=== PATIENT | female | born 1995 | race Caucasian/White ===

== ENCOUNTER 2019-10-07 19:25 | Emergency (ER) | payer OTHER ==
--- OUTSIDE RECORDS SUMMARY | 2019-10-07 19:27 | XMS REPORT | Summary of Care ---
:1995 Author Organization [facility] - [facility] Address [address] [place] [address] Care Team Providers Name Role Phone Pcp, Patient Does Not Have A Primary Care Provider Reason for Visit Reason Comments Rx Concern/Question Encounter Details Date Type Department Care Team Description 06/21/2019 [facility] and Valeriano Echavarria, Non-Scheduled Counseling [address] [address] [place] [address] Allergies Active Allergy Reactions Severity Noted Date Comments Shellfish Derived Hives Medium 10/25/2018 documented as of this encounter (statuses as of 06/21/2019) Medications Medication Sig Dispensed Refills Start Date End Date Status ibuprofen 200 mg Take 2 tablets by 0 10/25/2018 Active tabletIndications: Pain mouth every 6 of right calf (six) hours as needed for Pain (scale 4-6). fluticasone propionate Use 2 Sprays in 16 g 0 05/03/2019 Active 50 mcg/actuation nasal each nostril sprayIndications: Nasal daily. congestion escitalopram oxalate Take 1 tablet by 30 tablet 2 05/03/2019 Active (LEXAPRO) 10 mg mouth daily. tabletIndications: Panic disorder, Generalized anxiety disorder, Depressive disorder documented as of this encounter (statuses as of 06/21/2019) Active Problems Not on filedocumented as of this encounter (statuses as of 06/21/2019) Immunizations Name Administration Dates Next Due HEP B, Adult Dosage 12/26/2018, 10/21/2018 documented as of this encounter Social History Tobacco Use Types Packs/Day Years Used Date Never Smoker Smokeless Tobacco: Never Used Alcohol Use Drinks/Week oz/Week Comments Yes Alcohol Habits Answer Date Recorded How often do you have a drink containing alcohol? 2-4 times a month 2018 How many drinks containing alcohol do you have on a Not asked typical day when you are drinking? How often do you have six or more drinks on one Not asked occasion? Stress Answer Date Recorded Do you feel stress - tense, restless, nervous, or To some extent 05/03/2019 anxious, or unable to sleep at night because your mind is troubled all the time - these days? Intimate Partner Violence Answer Date Recorded Within the last year, have you been afraid of your partner or No 05/03/2019 ex-partner? Within the last year, have you been humiliated or emotionally No 05/03/2019 abused in other ways by your partner or ex-partner? Within the last year, have you been kicked, hit, slapped, or No 05/03/2019 otherwise physically hurt by your partner or ex-partner? Within the last year, have you been raped or forced to have any No 05/03/2019 kind of sexual activity by your partner or ex-partner? Sex Assigned at Date Recorded Not on file Job Start Date Occupation Industry Not on file Not on file Not on file Travel History Travel Start Travel End No recent travel history available. documented as of this encounter Last Filed Vital Signs Not on filedocumented in this encounter Plan of Treatment Health Maintenance Due Date Last Done Comments VARICELLA VACCINES (1 of 2 - 13+ 01/06/2008 2-dose series) HPV VACCINES (1 - Female 3-dose 2010 series) CHLAMYDIA SCREENING 2011 DTaP,Tdap,and Td Vaccines (1 - 2014 Tdap) PAP SMEAR 01/06/2016 INFLUENZA VACCINE (#1) 2019 PNEUMOCOCCAL 0-64 YEARS COMBINED Aged Out No longer eligible based on SERIES patient's age to complete this topic documented as of this encounter Results Not on filedocumented in this encounter Insurance Payer Benefit Plan / Group Subscriber ID Effective Dates Phone Address Type AETNA AETNA [facility] [id number] 2014-Present PPO documented as of this encounter
--- OUTSIDE RECORDS SUMMARY | 2019-10-07 19:27 | XMS REPORT ---
:1995 [facility] Address [address] [place] [address] Dr. Suero [address] [place] [address] Care Team Providers Name Role Phone Unavailable Unavailable Unavailable Problems This patient has no known problems. Allergies, Adverse Reactions, Alerts This patient has no known allergies or adverse reactions. Medications This patient has no known medications.
--- OUTSIDE RECORDS SUMMARY | 2019-10-07 19:27 | XMS REPORT | Summary of Care ---
:1995 Author Organization [facility] - [facility] Address [address] [place] [address] Care Team Providers Name Role Phone Pcp, Patient Does Not Have A Primary Care Provider Reason for Visit Reason Comments Anxiety Encounter Details Date Type Department Care Team Description 06/06/2019 Pending sale to [facility] Danielle Bright, Panic disorder (Primary Dx); Scheduled Visit and Counseling PHD Generalized anxiety disorder [address] [place], [place] [address] [address] [place], [place] [phone] Allergies Active Allergy Reactions Severity Noted Date Comments Shellfish Derived Hives Medium 10/25/2018 documented as of this encounter (statuses as of 06/06/2019) Medications Medication Sig Dispensed Refills Start Date [...] as of this encounter (statuses as of 06/06/2019) Active Problems Not on filedocumented as of this encounter (statuses as of 06/06/2019) Immunizations Name Administration Dates Next Due HEP [...] Signs Not on filedocumented in this encounter Progress Notes Danielle Bright, PHD - 06/06/2019 1:00 PM [facility] Outpatient Follow-Up [id number] Lindsey Jerome [address] [place] [address] 06/06/2019 HISTORY OF PRESENT ILLNESS: (severity, timing, modifying factors, quality, duration/clinical course,context, associated signs and symptoms) Lindsey reports that she has been doing "so-so." She reports that her baseline of anxiety has been approximately a 4. She reports there are also several times throughout the week that she did feel some chest tightness. She reports that her anxiety did not reach a level of a panic attack. She reports that she is enjoying her break as slightly anxious about going back to school next week. She reports some continued passive suicidal ideation such as it would be easier if she were not here. She reports no plan or intent and there was no evidence of any plan or intent. She reports that her main complaint is his been very tired despite getting her proper amount of sleep. She did describe poor sleep quality and states that she frequently remembers her dreams. She also reports that she has greatdifficulty paying attention and over the past 2 weeks she is only been able to pay attention for about 15 minutes at a time. MENTAL STATUS EXAM: COMMENTS: On time and engaged GAIT AND STATION: Normal APPEARANCE: Well Groomed ATTITUDE: Cooperative PSYCHOMOTOR: Psychomotor Normal MOOD: Anxious AFFECT: Flat SPEECH: Regular rate and volume LANGUAGE: Normal THOUGHT PROCESS: Logical Directed ASSOCIATIONS: Normal ABNORMAL/PSYCHOTIC THOUGHTS THOUGHT CONTENT: Without Delusions PERCEPTUAL: Without Hallucinations SUICIDAL: Not present VIOLENT/HOMICIDAL: Not Present COGNITION: Normal Cognition LEVEL OF CONSCIOUSNESS: Full ORIENTATION: Oriented x 4 RECENT AND REMOTE MEMORY: Intact INTELLIGENCE: Average FUND OF KNOWLEDGE: Average ATTENTION AND CONCENTRATION: Good JUDGEMENT: Intact INSIGHT: Intact ASSESSMENT/FORMULATION: She reports that she's been doing fairly well with her self-care and behavioral activation but does want to continue to make some improvements. We discussed without the clinic going forward. She reports that she wants to increase her physical activity. We discussed with this up realistically look like in her expectations. We also discussed various cognitive techniques. She thought that completing the simple thought record to start identifying the thoughts leading to her emotions would be helpful. We also discussed proper sleep hygiene and sleep restriction. She also plans to the psychiatristto see the medication could be impacting her sleep or if the sleep study should be conducted. We agreed to meet my next available session. We discussed her possibly completing the attention and concentration screening next session. She was able to inform me of the emergency resources available to her. DIAGNOSES/PLAN: Panic disorder (primary encounter diagnosis) Comment: Improved Plan: CBT Generalized anxiety disorder Comment: Stable Plan: CBT documented in this encounter Plan of Treatment Health [...] Results Not on filedocumented in this encounter Visit Diagnoses Diagnosis Panic disorder - Primary Panic disorder without agoraphobia Generalized anxiety disorder documented in this encounter ([place]) [place] [address] documented as of this encounter
--- OUTSIDE RECORDS SUMMARY | 2019-10-07 19:27 | XMS REPORT | Summary of Care ---
:1995 Author Organization [facility] - [facility] Address [address] [place] [address] Care Team Providers Name Role Phone Pcp, Patient Does Not Have A Primary Care Provider Reason for Visit Reason Comments Rx Concern/Question Encounter Details Date Type Department Care Team Description 06/20/2019 Telephone [facility] and Valeriano Echavarria MD Rx Concern/Question Counseling [address] [facility] [address] [place] [address] [place] [address] Allergies Active Allergy Reactions Severity Noted Date Comments Shellfish Derived Hives Medium 10/25/2018 documented as of this encounter (statuses as of 06/20/2019) Medications Medication Sig Dispensed Refills Start Date [...] as of this encounter (statuses as of 06/20/2019) Active Problems Not on filedocumented as of this encounter (statuses as of 06/20/2019) Immunizations Name Administration Dates Next Due HEP [...] Effective Dates Phone Address Type AETNA AETNA [facility] [id number] 2014-Present PPO documented as of this encounter
--- OUTSIDE RECORDS SUMMARY | 2019-10-07 19:27 | XMS REPORT | Summary of Care ---
:1995 Author Organization [facility] Address [address] [place] [address] Care Team Providers Name Role Phone Pcp, Patient Does Not Have A Primary Care Provider Reason for Visit Reason Comments Anxiety Encounter Details Date Type Department Care Team Description 05/19/2019 [facility] Danielle Bright, Panic disorder (Primary Dx); Scheduled Visit and Counseling PHD Generalized anxiety disorder [address] [place], [place] [address] [address] [place], [place] [phone] Allergies Active Allergy Reactions Severity Noted Date Comments Shellfish Derived Hives Medium 10/25/2018 documented as of this encounter (statuses as of 05/29/2019) Medications Medication Sig Dispensed Refills Start Date [...] as of this encounter (statuses as of 05/29/2019) Active Problems Not on filedocumented as of this encounter (statuses as of 05/29/2019) Immunizations Name Administration Dates Next Due HEP [...] encounter Progress Notes Danielle Bright, PHD - 05/19/2019 11:00 AM [facility] Outpatient Follow-Up [id number] Lindsey Jerome [address] [place] [address] 05/29/2019 INFORMED CONSENT: Informed consent was reviewed with the client. She was informed of confidentiality and the limits ofconfidentiality. She was informed that [facility] now documents in [facility]. She was informed of the safeguards in place for her record. She was informed that she can contact the office of institutional compliance if she believes her record has been accessed inappropriately, and she wasgiven their contact information. HISTORY OF PRESENT ILLNESS: (severity, timing, modifying factors, quality, duration/clinical course,context, associated signs and symptoms) Lindsey reports that she has been doing well since we last met. She reports that the medication has been very helpful to her. She repots that her classes are going well. MENTAL STATUS EXAM: COMMENTS: on time and engaged GAIT AND STATION: Normal APPEARANCE: Well Groomed ATTITUDE: Cooperative PSYCHOMOTOR: Psychomotor Normal MOOD: Normal AFFECT: Appropriate SPEECH: Regular rate and volume LANGUAGE: Normal THOUGHT PROCESS: Logical Directed ASSOCIATIONS: Normal ABNORMAL/PSYCHOTIC THOUGHTS THOUGHT CONTENT: Without Delusions PERCEPTUAL: Without Hallucinations SUICIDAL: Not present VIOLENT/HOMICIDAL: Not Present COGNITION: Normal Cognition LEVEL OF CONSCIOUSNESS: Full ORIENTATION: Oriented x 4 RECENT AND REMOTE MEMORY: Intact INTELLIGENCE: Average FUND OF KNOWLEDGE: Average ATTENTION AND CONCENTRATION: Good JUDGEMENT: Intact INSIGHT: Intact ASSESSMENT/FORMULATION: Today she was instructed in various relaxation techniques to help decrease her anxiety and panic. She responded well to the interventions used. She thought that deep breathing would be very helpful forher. She was able to inform me of the emergency resources available to her. DIAGNOSES/PLAN: Panic disorder (primary encounter diagnosis) Comment: stable Plan: CBT Generalized anxiety disorder Comment: stable Plan: CBT documented in this encounter Plan of Treatment Date Type Specialty Care Team Description 06/06/2019 [facility] Danielle Bright, PHD Scheduled Visit [address] [place] [phone] Health Maintenance Due Date Last Done Comments [...] Generalized anxiety disorder documented in this encounter documented as of this encounter
[2019-10-07 20:54] LABS: Urine Blood NEGATIVE (NEG); Urine Glucose NEGATIVE (NEG); Urine Protein NEGATIVE (NEG); Urine pH 5.5 (5.0-7.0)
[2019-10-07 20:55] LABS: Absolute Lymphocytes (CBC) 2.5 K/uL (0.7-4.9); Hematocrit 43.2 % (36.0-45.0); Lymphocytes % 38.6 % (15.3-44.8); MPV 8.4 fL (7.6-11.3); RBC Red Blood Cell Count 4.91 M/uL (3.86-4.86)
[2019-10-07 21:09] LABS: Potassium 3.9 mmol/L (3.5-5.1)
[2019-10-07] MEDS ORDERED: CIPROFLOXACIN HCL 500 MG TAB ONE (23:02)
--- NOTE | 2019-10-08 00:33 | ER ---
Nurse's Notes [facility] Name: Lindsey Cano Age: 24 yrs Sex: Female : 1995 Arrival Date: 10/07/2019 Time: 19:31 Bed 25 Private MD: Diagnosis: Retention of urine Presentation: 10/07 19:47 Presenting complaint: Patient states: vaginal pain and "watery discharge" since 09/28 sr5 painful urination. Seen at [place] Wednesday, Urine neg, Upreg negative, reports tested for trich/gonorrhea haven't heard back about results yet. Sent home on Flagyl. Transition of care: patient was not received from another setting of care. Onset of symptoms was September 28, 2019. Risk Assessment: Do you want to hurt yourself or someone else? Patient reports no desire to harm self or others. Initial Sepsis Screen: Does the patient meet any 2 criteria? No. Patient's initial sepsis screen is negative. Care prior to arrival: None. 19:47 Method Of Arrival: Ambulatory sr5 19:47 Acuity: LENNY 3 sr5 21:44 Initial Sepsis Screen: Does the patient have a suspected source of infection? No. mg2 Patient's initial sepsis screen is negative. Triage Assessment: 19:51 General: Appears uncomfortable, Behavior is calm, cooperative. Pain: Complains of pain sr5 in groin. Neuro: No deficits noted. Cardiovascular: No deficits noted. Respiratory: No deficits noted. GI: No deficits noted. : Reports burning with urination, discharge, pain in suprapubic area. 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 - Social history:: Smoking status: Patient/guardian denies using tobacco, never smoked. - Ebola Screening: : Patient negative for fever greater than or equal to 101.5 degrees Fahrenheit, and additional compatible Ebola Virus Disease symptoms. Screenin:43 Abuse screen: Denies threats or abuse. Denies injuries from another. Nutritional mg2 screening: No deficits noted. Tuberculosis screening: No symptoms or risk factors identified. Fall Risk IV access (20 points). Assessment: 21:07 Reassessment: pt still was not able to pee, complains of pain, bladder is distended, as jv1 ordered by provider, performed straight catheterization, was able to drain 900ml of urine. pt voiced relief of pain. . 21:42 General: Appears in no apparent distress. comfortable, Behavior is calm, cooperative. mg2 Pain: Complains of pain in groin Pain does not radiate. Pain currently is 3 out of 10 on a pain scale. Quality of pain is described as aching. Neuro: Level of Consciousness is awake, alert, obeys commands, Oriented to person, place, time, situation. Cardiovascular: Capillary refill < 3 seconds Patient's skin is warm and dry. Respiratory: Airway is patent Respiratory effort is even, unlabored, Respiratory pattern is regular, symmetrical. GI: No signs and/or symptoms were reported involving the gastrointestinal system. : Reports pain with urination. EENT: No signs and/or symptoms were reported regarding the EENT system. Derm: Skin is intact, is healthy with good turgor, Skin is pink, warm \\T\\ dry. normal. Musculoskeletal: Circulation, motion, and sensation intact. Capillary refill < 3 seconds. 22:38 Reassessment: Patient and/or family updated on plan of care and expected duration. Pain jv1 level reassessed. Patient is alert, oriented x 3, equal unlabored respirations, skin warm/dry/pink. Patient is alert/active/playful, equal unlabored respirations, skin warm/dry/pink. received report from Lizzette Anthony RN. 22:40 Reassessment: Patient appears in no apparent distress at this time. Patient and/or jv1 family updated on plan of care and expected duration. Pain level reassessed. provider in the room with pt. provider said pt will try to urinate first before getting discharged. given pt 3 cups of water for her to drink.. 23:00 Reassessment: Patient appears in no apparent distress at this time. Patient and/or jv1 family updated on plan of care and expected duration. Pain level reassessed. Patient is alert, oriented x 3, equal unlabored respirations, skin warm/dry/pink. General:. General: asked pt to urinate, pt tried but still she said she was unable to void. . Pain: Denies pain. Neuro: Level of Consciousness is obeys commands, Oriented to person, place, time, situation. 23:47 Reassessment: provider visited and asked pt to urinate and if still unable to do jv1 bladder scan. 23:50 Reassessment: instructed pt to try to urinate. pt said she will in a little bit. . jv1 10/08 00:20 Reassessment: pt tried to urinate 2x but was unable to. bladder scan ws done and noted jv1 341ml or urine in the bladder. provider updated, she ordered to put a causey catheter for the pt to take home. . 00:40 Reassessment: causey catherter inserted, drained 400ml of urine. jv1 01:30 Reassessment: Patient and/or family updated on plan of care and expected duration. Pain jv1 level reassessed. Patient is alert, oriented x 3, equal unlabored respirations, skin warm/dry/pink. Patient denies pain at this time. Patient states feeling better. Patient states symptoms have improved. causey catheter intact and draining well. well anchored to the pt's right thigh. . 01:50 Reassessment:. jv1 Vital Signs: 10/07 19:51 BP 104 / 69; Pulse 81; Resp 16; Temp 98.1; Pulse Ox 97% on R/A; Weight 67.59 kg (R); sr5 Height 5 ft. 9 in. (175.26 cm); Pain 6/10; 21:45 BP 131 / 76; Pulse 80; Resp 18; Temp 98; Pulse Ox 100% on R/A; mg2 22:45 BP 125 / 70; Pulse 88; Resp 18; Temp 98; Pulse Ox 100% on R/A; Pain 0/10; jv1 23:45 BP 128 / 75; Pulse 79; Resp 18; Temp 98.5; Pulse Ox 100% on R/A; Pain 0/10; jv1 10/08 00:45 BP 120 / 80; Pulse 78; Resp 18; Temp 98.5; Pulse Ox 98% ; Pain 2/10; jv1 01:30 BP 115 / 70; Pulse 78; Resp 18; Temp 98.9; Pulse Ox 98% ; Pain 0/10; jv1 10/07 19:51 Body Mass Index 22.00 (67.59 kg, 175.26 cm) sr5 ED Course: 10/07 19:31 Patient arrived in ED. cf2 19:50 Triage completed. sr5 19:51 Arm band placed on. sr5 19:57 Farheen Upton FNP-C is [facility]. kb 19:57 Feliz Becerra MD is Attending Physician. kb 20:04 Justo Anthony, RN is Primary Nurse. mg2 21:40 Straight cath inserted, using sterile technique, 16 Fr. Specimen obtained. 900 ml mg2 Returned clear yellow urine. Patient tolerated well. 21:43 Patient has correct armband on for positive identification. Placed in gown. Door mg2 closed. Warm blanket given. 21:44 No provider procedures requiring assistance completed. Inserted saline lock: 20 gauge mg2 in left antecubital area, using aseptic technique. Blood collected. by INDER Be. 22:01 Abdomen In Process Unspecified. EDMS 10/08 00:27 Brie Andino MD is Referral Physician. kb 01:30 IV discontinued, intact, bleeding controlled, No redness/swelling at site. Pressure jv1 dressing applied. Administered Medications: 10/07 23:05 Drug: Cipro 500 mg Route: PO; jv1 23:59 Follow up: Response: No adverse reaction jv1 Intake: 21:30 PO: 100ml; IV: 20ml; Total: 120ml. jv1 10/08 01:30 PO: 800ml; Total: 920ml. jv1 Output: 10/07 21:30 Urine: 900ml (Straight Cath); Total: 900ml. jv1 10/08 01:30 Urine: 400ml (Causey); Total: 1300ml. jv1 Outcome: 00:27 Discharge ordered by . kb 01:30 Discharged to home ambulatory, with family, with friend. jv1 01:30 Condition: improved 01:30 Discharge instructions given to patient, family, Instructed on discharge instructions, follow up and referral plans. instructed on causey catheter care. Demonstrated understanding of instructions, follow-up care, medications, causey catheter care Prescriptions given X 1. 01:53 Patient left the ED. jv1 Signatures: Dispatcher [employer] EDMT Farheen Upton FNP-C FNP-Rich Rodriguez RN RN sr5 Justo Anthony RN RN mg2 Indiana Nguyen RN RN jv1 Oscar Ramirez cf2
--- NOTE | 2019-10-08 00:34 | EDPHYS ---
Physician Documentation [facility] Name: Lindsey Cano Age: 24 yrs Sex: Female : 1995 Arrival Date: 10/07/2019 Time: 19:31 Bed 25 Private MD: ED Physician Feliz Becerra HPI: 10/07 20:31 This 24 yrs old Female presents to ER via Ambulatory with complaints of kb Urinary Problem, Leg Pain. 20:31 The patient presents with urinary symptoms, urinary retention. Onset: The kb symptoms/episode began/occurred this morning. Modifying factors: The symptoms are alleviated by nothing, the symptoms are aggravated by nothing. Associated signs and symptoms: Pertinent positives: unable to urinate. Severity of symptoms: At their worst the symptoms were moderate, in the emergency department the symptoms are unchanged. The patient has not experienced similar symptoms in the past. The patient has not recently seen a physician. Pt reports she was having difficulty urinating this morning and has been unable to urinate since this afternoon. Reports pain to suprapubic area. States "I feel like I have to pee so bad, but I just can't go.". 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 - Social history:: Smoking status: Patient/guardian denies using tobacco, never smoked. - Ebola Screening: : Patient negative for fever greater than or equal to 101.5 degrees Fahrenheit, and additional compatible Ebola Virus Disease symptoms. ROS: 20:30 Constitutional: Negative for fever, chills, and weight loss, Cardiovascular: Negative kb for chest pain, palpitations, and edema, Respiratory: Negative for shortness of breath, cough, wheezing, and pleuritic chest pain, Abdomen/GI: Negative for abdominal pain, nausea, vomiting, diarrhea, and constipation, Back: Negative for injury and pain, MS/Extremity: Negative for injury and deformity, Skin: Negative for injury, rash, and discoloration, Neuro: Negative for headache, weakness, numbness, tingling, and seizure. 20:30 : Positive for urinary symptoms, unable to urinate. Exam: 20:30 Constitutional: This is a well developed, well nourished patient who is awake, alert, kb and in no acute distress. Head/Face: Normocephalic, atraumatic. ENT: Nares patent. No nasal discharge, no septal abnormalities noted. Tympanic membranes are normal and external auditory canals are clear. Oropharynx with no redness, swelling, or masses, exudates, or evidence of obstruction, uvula midline. Mucous membranes moist. Neck: Trachea midline, no thyromegaly or masses palpated, and no cervical lymphadenopathy. Supple, full range of motion without nuchal rigidity, or vertebral point tenderness. No Meningismus. Chest/axilla: Normal chest wall appearance and motion. Nontender with no deformity. No lesions are appreciated. Cardiovascular: Regular rate and rhythm with a normal S1 and S2. No gallops, murmurs, or rubs. Normal PMI, no JVD. No pulse deficits. Respiratory: Lungs have equal breath sounds bilaterally, clear to auscultation and percussion. No rales, rhonchi or wheezes noted. No increased work of breathing, no retractions or nasal flaring. Back: No spinal tenderness. No costovertebral tenderness. Full range of motion. Skin: Warm, dry with normal turgor. Normal color with no rashes, no lesions, and no evidence of cellulitis. MS/ Extremity: Pulses equal, no cyanosis. Neurovascular intact. Full, normal range of motion. Neuro: Awake and alert, GCS 15, oriented to person, place, time, and situation. Cranial nerves II-XII grossly intact. Motor strength 5/5 in all extremities. Sensory grossly intact. Cerebellar exam normal. Normal gait. 20:30 Abdomen/GI: Inspection: distension, that is moderate, in the suprapubic area, Bowel sounds: normal, in all quadrants, Palpation: soft, in all quadrants, moderate abdominal tenderness, in the suprapubic area. Vital Signs: 19:51 BP 104 / 69; Pulse 81; Resp 16; Temp 98.1; Pulse Ox 97% on R/A; Weight 67.59 kg (R); sr5 Height 5 ft. 9 in. (175.26 cm); Pain 6/10; 21:45 BP 131 / 76; Pulse 80; Resp 18; Temp 98; Pulse Ox 100% on R/A; mg2 22:45 BP 125 / 70; Pulse 88; Resp 18; Temp 98; Pulse Ox 100% on R/A; Pain 0/10; jv1 23:45 BP 128 / 75; Pulse 79; Resp 18; Temp 98.5; Pulse Ox 100% on R/A; Pain 0/10; jv1 10/08 00:45 BP 120 / 80; Pulse 78; Resp 18; Temp 98.5; Pulse Ox 98% ; Pain 2/10; jv1 01:30 BP 115 / 70; Pulse 78; Resp 18; Temp 98.9; Pulse Ox 98% ; Pain 0/10; jv1 10/07 19:51 Body Mass Index 22.00 (67.59 kg, 175.26 cm) sr5 MDM: 10/07 19:57 Patient medically screened. kb 20:30 Data reviewed: vital signs, nurses notes. Data interpreted: Pulse oximetry: on room air kb is 97 %. Interpretation: normal. 23:02 Counseling: I had a detailed discussion with the patient and/or guardian regarding: the kb historical points, exam findings, and any diagnostic results supporting the discharge/admit diagnosis, lab results, radiology results, the need for outpatient follow up, a family practitioner, a urologist, to return to the emergency department if symptoms worsen or persist or if there are any questions or concerns that arise at home. 10/08 00:26 ED course: Pt still unable to urinate. Will place causey to go home with and pt will kb call Dr Andino on Wednesday for follow up. . 10/07 20:18 Order name: CBC with Diff; Complete Time: 20:59 kb 10/07 20:18 Order name: Basic Metabolic Panel; Complete Time: 21:10 kb 10/07 20:52 Order name: Urine Dipstick--Ancillary (enter results); Complete Time: 20:55 cm6 10/07 20:52 Order name: Urine --Ancillary (enter results); Complete Time: 20:55 cm6 10/07 21:49 Order name: Abdomen EDMS 10/07 20:00 Order name: Urine Dipstick-Ancillary (obtain specimen); Complete Time: 20:24 kb 10/07 20:18 Order name: IV Saline Lock; Complete Time: 21:07 kb 10/07 20:18 Order name: Labs collected and sent; Complete Time: 21:07 kb 10/07 20:19 Order name: Straight Cath - Urine; Complete Time: 21:07 kb 10/08 00:27 Order name: Causey Leg Bag; Complete Time: 01:05 kb Administered Medications: 10/07 23:05 Drug: Cipro 500 mg Route: PO; jv1 23:59 Follow up: Response: No adverse reaction jv1 Disposition: 10/08 07:00 Co-signature as Attending Physician, Feliz Becerra MD. rn Disposition: 10/08/19 00:27 Discharged to Home. Impression: Retention of urine. - Condition is Stable. - Prescriptions for Cipro 500 mg Oral Tablet - take 1 tablet by ORAL route every 12 hours for 7 days; 14 tablet. - Medication Reconciliation Form, Thank You Letter, Antibiotic Education, Prescription Opioid Use form. - Follow up: Emergency Department; When: As needed; Reason: Worsening of condition. Follow up: Private Physician; When: 2 - 3 days; Reason: Recheck today's complaints, Continuance of care, Re-evaluation by your physician. Follow up: Brie Andino MD; When: 1 - 2 days; Reason: Recheck today's complaints. Signatures: Dispatcher [employer] EDMA Farheen Upton, SHOPPER-C SHOPPER-Ckb Feliz Becerra MD MD rn Resecker, Rich RN RN sr5 Indiana Nguyen RN RN jv1 Corrections: (The following items were deleted from the chart) 10/07 20:19 20:18 Causey ordered. kb kb 21:49 21:00 Abdomen Pelvis W Con+CT.RAD.BRZ ordered. EDMA EDMA 10/08 00:27 00:27 10/08/2019 00:27 Discharged to Home. Impression: Retention of urine. Condition is kb Stable. Forms are Medication Reconciliation Form, Thank You Letter, Antibiotic Education, Prescription Opioid Use. Follow up: Emergency Department; When: As needed; Reason: Worsening of condition. Follow up: Private Physician; When: 2 - 3 days; Reason: Recheck today's complaints, Continuance of care, Re-evaluation by your physician. kb 01:53 00:27 10/08/2019 00:27 Discharged to Home. Impression: Retention of urine. Condition is jv1 Stable. Prescriptions for Cipro 500 mg Oral Tablet - take 1 tablet by ORAL route every 12 hours for 7 days; 14 tablet. and Forms are Medication Reconciliation Form, Thank You Letter, Antibiotic Education, Prescription Opioid Use. Follow up: Emergency Department; When: As needed; Reason: Worsening of condition. Follow up: Private Physician; When: 2 - 3 days; Reason: Recheck today's complaints, Continuance of care, Re-evaluation by your physician. Follow up: Brie Andino; When: 1 - 2 days; Reason: Recheck today's complaints. kb
[2019-10-08 02:08] VITALS: O2SAT 98
[2019-10-08 02:10] VITALS: BP 115/70; TEMP 98.9
--- NOTE | 2019-10-09 09:22 | RAD REPORT ---
EXAM DESCRIPTION: CT - Abdomen Pelvis Wo Contrast - 10/07/2019 10:49 pm CLINICAL HISTORY: The patient is 24 years old and is Female; urinary retention TECHNIQUE: Axial computed tomography images of the abdomen and pelvis without intravenous contrast. Sagittal and coronal reformatted images were created and reviewed. This CT exam was performed usi ng one or more of the following dose reduction techniques: automated exposure control, adjustment o f the mA and/or kV according to patient size, and/or use of iterative reconstruction technique. DLP: 546 mGy*cm COMPARISON: None. FINDINGS: LUNG BASES: Lung bases are clear. HEART: Visualized heart is normal. ABDOMEN: LIVER: Unremarkable. GALLBLADDER AND BILE DUCTS: Unremarkable. No calcified stones. No ductal dilation. PANCREAS: Unremarkable. No ductal dilation. SPLEEN: Unremarkable. No splenomegaly. ADRENALS: Unremarkable. No mass. KIDNEYS AND URETERS: No radiopaque stone, hydronephrosis or hydroureter. STOMACH AND BOWEL: Unremarkable. No obstruction. No mucosal thickening. PELVIS: APPENDIX: The appendix is seen and is within normal limits. BLADDER: Bladder is decompressed. No stones. REPRODUCTIVE: Unremarkable as visualized. ABDOMEN and PELVIS: INTRAPERITONEAL SPACE: Small amount of free pelvic fluid. No free air. BONES/JOINTS: No acute fracture. No dislocation. SOFT TISSUES: Tiny fat-containing umbilical hernia. VASCULATURE: Unremarkable. No abdominal aortic aneurysm. LYMPH NODES: Unremarkable. No enlarged lymph nodes. OTHER FINDINGS: Physiologic pelvic changes. IMPRESSION: 1. No acute abdominal or pelvic abnormality. Decompressed bladder. 2. Physiologic pelvic changes. 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 The interpreting radiologist is f ully responsible for the content of the report.
== END 2019-10-08 01:53 | disposition home or self-care (01) ==
LOC: ER 19:25
DX: R33.9 Retention of urine, unspecified (principal); Z91.013 Allergy to seafood
CPT/HCPCS: 36415; 51702; 74176; 80048; 81003; 81025; 85025; 99284

== ENCOUNTER 2021-02-19 23:19 | Emergency (ER) | payer OTHER ==
--- OUTSIDE RECORDS SUMMARY | 2021-02-19 23:22 | XMS REPORT | Continuity of Care Document ---
:1995 Author Organization [facility] t Address [address] [place] [address] Care Team Providers Name Role Phone Doctor Unassigned, Mcgrew Attending Clinician Unavailable Jericho MACK P Attending Clinician Kaila GIBSON Attending Clinician Problems This patient has no known problems. Allergies, Adverse Reactions, Alerts This patient has no known allergies or adverse reactions. Medications This patient has no known medications. Procedures This patient has no known procedures. Encounters Start End Encounter Admission Attending Care Care Encounter Source Date/Time Date/Time Type Type Clinicians Facility Department ID 2020-05-16 2020-05-16 Orders Doctor LEHMAN [id number] 00:00:00 00:00:00 Only UnassJAYASHREE choudhury [id number] Mcgrew [facility] [id number] 2019-11-01 2019-11-01 Orders Doctor LEHMAN [id number] 00:00:00 00:00:00 Only UnassignedJAYASHREE [id number] Mcgrew [facility] [id number] 2019-06-21 2019-06-21 Student Linnette Echavarria [id number] 00:00:00 00:00:00 [facility] Valeriano Gill Student [id number] [facility] [id number] [facility] [id number] 2019-06-20 2019-06-20 Telephone Linnette Echavarria [id number] 00:00:00 00:00:00 Valeriano Gill Student [id number] Center [id number] 2019-06-06 2019-06-06 Student Linnette Bright [id number] 12:58:05 13:58:05 Health Danielle Student [id number] Scheduled Center [id number] Visit [id number] 2019-05-19 2019-05-19 Student Linnette Bright [id number] 10:53:34 11:00:21 [facility] Student [id number] Scheduled Center [id number] Visit [id number] Results This patient has no known results.
[2021-02-19 23:49] LABS: Urine Blood 3+ (Negative); Urine Glucose Negative (Negative); Urine Protein Trace (Negative); Urine Specific Gravity >=1.030 (1.005-1.030); Urine pH 5.5 (5.0-7.0)
[2021-02-20 00:24] LABS: Absolute Lymphocytes (CBC) 2.4 K/uL (0.7-4.9); Basophils % 0.8 % (0-1.3); Hematocrit 45.8 % (36.0-45.0); Lymphocytes % 30.1 % (15.3-44.8); MPV 9.4 fL (7.6-11.3); RBC Red Blood Cell Count 5.11 M/uL (3.86-4.86)
[2021-02-20 00:30] LABS: Potassium 3.9 mmol/L (3.5-5.1)
--- NOTE | 2021-02-20 00:38 | ER ---
Nurse's Notes [facility] Name: Lindsey Cano Age: 26 yrs Sex: Female : 1995 Arrival Date: 02/19/2021 Time: 23:23 Bed 30 Private MD: Diagnosis: Dysmenorrhea, unspecified Presentation: 02/19 23:35 Chief complaint: Patient states: tonight she started having severe "menstrual cramping" bb and started having vaginal bleeding during which she passed "a membrane". She received a Depo shot for the first time in December. Coronavirus screen: At this time, the client does not indicate any symptoms associated with coronavirus-19. Ebola Screen: No symptoms or risks identified at this time. Initial Sepsis Screen: Does the patient meet any 2 criteria? No. Patient's initial sepsis screen is negative. Does the patient have a suspected source of infection? No. Patient's initial sepsis screen is negative. Risk Assessment: Do you want to hurt yourself or someone else? Patient reports no desire to harm self or others. Onset of symptoms was February 19, 2021. 23:35 Method Of Arrival: Ambulatory bb 23:35 Acuity: LENNY 3 bb Triage Assessment: 02/20 00:52 General: Appears in no apparent distress. Behavior is calm, cooperative. : No ak2 deficits noted. 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 - Social history:: Smoking status: unknown. Screenin:52 Abuse screen: Denies threats or abuse. Denies injuries from another. Nutritional ak2 screening: No deficits noted. Tuberculosis screening: No symptoms or risk factors identified. Fall Risk None identified. Assessment: 23:51 General: urine preg negative. Pain: Denies pain. : Reports vaginal bleeding that is ak2 with clots. 02/20 00:52 : ak2 Vital Signs: 02/19 23:35 BP 119 / 76; Pulse 74; Resp 16 S; Temp 98.7(O); Pulse Ox 96% on R/A; Weight 68.04 kg bb (R); Height 5 ft. 0 in. (152.40 cm) (R); Pain 4/10; 02/20 00:51 BP 115 / 61; Pulse 74; Resp 18; Pulse Ox 100% ; ak2 02/19 23:35 Body Mass Index 29.29 (68.04 kg, 152.40 cm) bb ED Course: 02/19 23:23 Patient arrived in ED. bp1 23:26 [facility] Upton [facility]C [facility]. kb 23:26 Feliz Becerra MD is Attending Physician. kb 23:38 Javier Savage is Primary Nurse. ak2 23:39 Triage completed. bb 23:40 Arm band placed on Patient placed in an exam room, on a stretcher, on pulse oximetry. bb 23:52 No apparent distress. ak2 23:52 Patient has correct armband on for positive identification. ak2 23:52 No provider procedures requiring assistance completed. intact. ak2 Administered Medications: No medications were administered Outcome: 02/20 00:38 Discharge ordered by MD. kb 00:52 Discharged to home ak2 00:52 Condition: stable 00:52 Discharge instructions given to patient. 00:53 Patient left the ED. ak2 Signatures: Farheen Upton FNP-C FNP-Ckb Ballard, Brenda, RN RN bb Tootie Stoner bp1 Javier Savage ak2
--- NOTE | 2021-02-20 00:38 | EDPHYS ---
Physician Documentation [facility] Name: Lindsey Cano Age: 26 yrs Sex: Female : 1995 Arrival Date: 02/19/2021 Time: 23:23 Bed 30 Private MD: ED Physician Feliz Becerra HPI: 02/19 23:34 This 26 yrs old Female presents to ER via Unassigned with complaints of kb Vaginal Bleeding. 23:34 The patient presents with vaginal bleeding that is moderate, with clots. Onset: The kb symptoms/episode began/occurred 4 day(s) ago, and became worse today. Modifying factors: The symptoms are alleviated by nothing, the symptoms are aggravated by nothing. Associated signs and symptoms: Pertinent positives: cramping, vaginal bleeding, Pertinent negatives: fever. Severity of symptoms: At their worst the symptoms were moderate, in the emergency department the symptoms are unchanged. The patient has not experienced similar symptoms in the past. The patient has not recently seen a physician. 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 - Social history:: Smoking status: unknown. ROS: 23:34 Constitutional: Negative for fever, chills, and weight loss. kb 23:34 Abdomen/GI: Positive for abdominal cramps, Negative for abdominal pain, nausea, vomiting, and diarrhea. 23:34 : Positive for vaginal bleeding. 23:34 All other systems are negative. Exam: 23:33 Constitutional: This is a well developed, well nourished patient who is awake, alert, kb and in no acute distress. Head/Face: Normocephalic, atraumatic. ENT: Moist Mucous membranes Cardiovascular: Regular rate and rhythm with a normal S1 and S2. No gallops, murmurs, or rubs. No pulse deficits. Respiratory: Respirations even and unlabored. No increased work of breathing, no retractions or nasal flaring. Skin: Warm, dry with normal turgor. Normal color. MS/ Extremity: Pulses equal, no cyanosis. Neurovascular intact. Full, normal range of motion. Neuro: Awake and alert, GCS 15, oriented to person, place, time, and situation. Moves all extremities. Normal gait. Psych: Awake, alert, with orientation to person, place and time. Behavior, mood, and affect are within normal limits. 23:33 Abdomen/GI: Inspection: abdomen appears normal, Bowel sounds: normal, Palpation: soft, in all quadrants, mild abdominal tenderness, in the left lower quadrant. Vital Signs: 23:35 BP 119 / 76; Pulse 74; Resp 16 S; Temp 98.7(O); Pulse Ox 96% on R/A; Weight 68.04 kg bb (R); Height 5 ft. 0 in. (152.40 cm) (R); Pain 4/10; 02/20 00:51 BP 115 / 61; Pulse 74; Resp 18; Pulse Ox 100% ; ak2 02/19 23:35 Body Mass Index 29.29 (68.04 kg, 152.40 cm) bb MDM: 02/19 23:26 Patient medically screened. kb 23:33 Data reviewed: vital signs, nurses notes. Data interpreted: Pulse oximetry: on room air kb is 100 %. Interpretation: normal. 02/20 00:14 Counseling: I had a detailed discussion with the patient and/or guardian regarding: the kb historical points, exam findings, and any diagnostic results supporting the discharge/admit diagnosis, lab results, the need for outpatient follow up, an OB/Gyne specialist, to return to the emergency department if symptoms worsen or persist or if there are any questions or concerns that arise at home. 02/19 23:31 Order name: Basic Metabolic Panel; Complete Time: 00:32 kb 02/19 23:31 Order name: CBC with Diff; Complete Time: 00:35 kb 02/19 23:31 Order name: Urine Test (obtain specimen); Complete Time: 23:50 kb 02/19 23:31 Order name: IV Saline Lock kb 02/19 23:49 Order name: Urine Dipstick-Ancillary EDMS 02/19 23:52 Order name: Urine --Ancillary (enter results) mw2 02/19 23:31 Order name: Labs collected and sent kb 02/19 23:31 Order name: NPO kb 02/19 23:31 Order name: Urine Dipstick-Ancillary (obtain specimen) Administered Medications: No medications were administered Disposition: 00:53 Co-signature as Attending Physician, Feliz Becerra MD. rn Disposition: 02/20/21 00:38 Discharged to Home. Impression: Dysmenorrhea, unspecified. - Condition is Stable. - Discharge Instructions: Dysmenorrhea, [id number]. - Medication Reconciliation Form, Thank You Letter, Antibiotic Education, Prescription Opioid Use form. - Follow up: Emergency Department; When: As needed; Reason: Worsening of condition. Follow up: Private Physician; When: 2 - 3 days; Reason: Recheck today's complaints, Continuance of care, Re-evaluation by your physician. Signatures: Dispatcher [employer] EDMO Farheen Upton, TRESTLE MECHANIC-C TRESTLE MECHANIC-CkIsabel Santoyo RN RN bb Nieto, Roman, MD MD rn Kapolka, Anthony ak2 Corrections: (The following items were deleted from the chart) 00:53 00:38 02/20/2021 00:38 Discharged to Home. Impression: Dysmenorrhea, unspecified. ak2 Condition is Stable. Discharge Instructions: Dysmenorrhea, [id number]. Forms are Medication Reconciliation Form, Thank You Letter, Antibiotic Education, Prescription Opioid Use. Follow up: Emergency Department; When: As needed; Reason: Worsening of condition. Follow up: Private Physician; When: 2 - 3 days; Reason: Recheck today's complaints, Continuance of care, Re-evaluation by your physician. kb
[2021-02-20 00:57] VITALS: TEMP 98.7
[2021-02-20 00:59] VITALS: BP 115/61; O2SAT 100
[2021-02-20 01:18] LABS: Urine Specific Gravity/Preg >1.030 (1.005-1.030)
== END 2021-02-20 00:53 | disposition home or self-care (01) ==
LOC: ER 23:19
DX: N94.6 Dysmenorrhea, unspecified (principal); Z88.1 Allergy status to other antibiotic agents; Z91.013 Allergy to seafood
CPT/HCPCS: 36415; 80048; 81003; 81025; 85025; 99283